=== PATIENT | male | born 1940 | race Caucasian/White ===

== ENCOUNTER → 2016-12-25 | Outpatient (CLI) | payer OTHER | LOC: MMPC 09:00 | DX: M54.5 Low back pain (principal); J43.8 Other emphysema; E78.5 Hyperlipidemia, unspecified; K42.9 Umbilical hernia without obstruction or gangrene; F25.8 Other schizoaffective disorders | CPT/HCPCS: 99214; G0463 ==

== ENCOUNTER → 2016-12-26 | Outpatient (CLI) | payer OTHER ==
[2016-12-26 10:45] LABS: BASOPHILS # (AUTO) 0.06 10*3/UL; BASOPHILS % (AUTO) 1.1 % (0-1); EOSINOPHILS % (AUTO) 2.2 % (0-8); HEMATOCRIT 45.6 % (42.0-52.0); HEMOGLOBIN 15.6 g/dL (14.0-18.0); IMM GRAN % (AUTO) 0.4 % (0-5); IMM GRAN# (AUTO) 0.02 10*3/UL; LYMPHOCYTES # (AUTO) 2.11 10*3/uL; LYMPHOCYTES % (AUTO) 38.3 % (10-50); MEAN CORPUSCULAR HEMOGLOBIN 31.5 PG (27-31); MEAN CORPUSCULAR HGB CONC 34.2 g/dL (33-37); MEAN PLATELET VOLUME 10.6 FL (7.4-12.2); MONOCYTES % (AUTO) 7.3 % (5-15); NEUTROPHILS % (AUTO) 50.7 % (50-80); RDW COEFFICIENT OF VARIATION 13.6 % (11.5-14.5); RED BLOOD COUNT 4.95 10^6/uL (4.70-6.10); WHITE BLOOD COUNT 5.51 10^3/uL (4.8-10.8)
[2016-12-26 10:47] LABS: PLATELET MORPHOLOGY COMMENT NORMAL MORPHOLOGY (NORM)
[2016-12-26 10:55] LABS: BILIRUBIN,TOTAL 0.5 mg/dL (0.3-1.2); CALCIUM 9.3 mg/dL (8.7-10.7); POTASSIUM 4.8 meq/L (3.8-5.2); TOTAL PROTEIN 6.9 g/dL (6.1-8.0)
[2016-12-26 16:32] LABS: BILIRUBIN,URINE NEGATIVE (NEG); CLARITY,URINE CLEAR (CLEAR); GLUCOSE, URINE (UA) NEGATIVE (NEG); LEUKOCYTE ESTERASE ,URINE NEGATIVE (NEG); NITRATE,URINE NEGATIVE (NEG); OCCULT BLOOD,URINE Trace-lysed (NEG); PH,URINE 6.5 (5.0-8.5); PROTEIN,URINE NEGATIVE (NEG); UROBILINOGEN,URINE 0.2 mg/dL (0.2)
[2016-12-26 17:22] LABS: URINE SAMPLE TYPE CLEAN CATCH URINE
[2016-12-26 17:26] LABS: SQUAMOUS EPITHELIAL CELL,UR RARE
== END ==
LOC: MOB LAB 07:52
DX: J43.9 Emphysema, unspecified (principal); E78.5 Hyperlipidemia, unspecified; E55.9 Vitamin D deficiency, unspecified; F25.8 Other schizoaffective disorders; Z12.5 Encounter for screening for malignant neoplasm of prostate
CPT/HCPCS: 36415; 80053; 80061; 81001; 82306; 84443; 85025; G0103

== ENCOUNTER → 2017-03-20 | Outpatient (CLI) | payer OTHER | LOC: MMPC 11:11 | DX: M54.5 Low back pain (principal); J43.9 Emphysema, unspecified; E78.5 Hyperlipidemia, unspecified; F25.8 Other schizoaffective disorders; E55.9 Vitamin D deficiency, unspecified | CPT/HCPCS: 99213; G0463 ==

== ENCOUNTER → 2017-04-14 | Outpatient (CLI) | payer OTHER | LOC: MOB LAB 13:29 | PROVIDERS: ATTEND Physician Assistant Medical | DX: J02.9 Acute pharyngitis, unspecified (principal) | CPT/HCPCS: 87880; 99213; G0463 ==

== ENCOUNTER 2018-10-13 07:52 | Observation (INO) ==
[2018-10-13] MEDS ORDERED: ONDANSETRON 4 MG/2 ML VIAL IVP ONE (08:00)
[2018-10-13] MEDS ORDERED: Sodium Chloride 0.9% 1,000 ML PRIMARY IV ONE (08:00)
[2018-10-13] MEDS ORDERED: FAMOTIDINE 20 MG/2 ML VIAL IVP ONE (08:01)
--- NOTE | 2018-10-13 08:06 | EKG ---
[address] [address] Measurements Intervals [place] Rate: 96 P: 56 SC: 171 QRS: 45 QRSD: 101 T: 58 QT: 352 QTc: 405 Interpretive Statements SINUS RHYTHM No previous ECG available for comparison Electronically Signed On 10-13-18 08:35:51 MST by Oliverio Bhatt [email or web address]
[2018-10-13 08:08] LABS: BASOPHILS # (AUTO) 0.06 10*3/UL; BASOPHILS % (AUTO) 0.8 % (0-1); EOSINOPHILS # (AUTO) 0.21 10*3/UL; EOSINOPHILS % (AUTO) 2.6 % (0-8); Hematocrit [HCT] 46.7 % (42.0-52.0); Hemoglobin [HGB] 15.9 g/dL (14.0-18.0); MEAN CORPUSCULAR HEMOGLOBIN 31.4 PG (27-31); MEAN CORPUSCULAR VOLUME 92.3 FL (80-90); MONOCYTES # (AUTO) 0.54 10*3/UL (0.3-0.8); MONOCYTES % (AUTO) 6.8 % (5-15); NEUTROPHILS # (AUTO) 4.24 10*3/UL; NEUTROPHILS % (AUTO) 52.9 % (50-80); PLATELET MORPHOLOGY COMMENT NORMAL MORPHOLOGY (NORM); RBC MORPHOLOGY COMMENT NORMAL MORPHOLOGY (NORM); RED BLOOD COUNT 5.06 10^6/uL (4.70-6.10); WBC MORPHOLOGY COMMENT NORMAL MORPHOLOGY (NORM)
[2018-10-13 08:16] LABS: BLOOD UREA NITROGEN 16 mg/dL (7-22); SERUM ALBUMIN 4.2 g/dL (3.5-4.8)
--- NOTE | 2018-10-13 08:24 | DI ---
AP CHEST X-RAY, 10/13/2018 8:00 AM : Clinical History: Chest pain. Vomiting. Previous Exam: None at this facility. Comment: On this view, the patient took a shallow inspiration. Soft Tissues: No acute soft tissue abnormality. Bones: Normal. Heart: Normal heart. Lungs: Lower lobe. No acute infiltrate or effusion. Mediastinum: Normal mediastinum. Nodules: No pulmonary nodules. Reading: Normal chest x-ray for the shallow inspiratory effort.
[2018-10-13] MEDS ORDERED: MECLIZINE 25 MG CHEWABLE TABLET PO ONE (08:43)
--- NOTE | 2018-10-13 08:43 | PDOC ---
General Adult HPI - General Chief Complaint: Nausea / Vomiting / Diarrhea Stated Complaint: n/v/diaphoretic Date Seen by Provider: 10/13/18 Time Seen by Provider: 07:55 Source: POSITIVE: Patient, EMS Exam Limitations: POSITIVE: No limitations Nurse's Notes Reviewed & Considered: Yes EMS Report Reviewed & Considered: Verbal - History of Present Illness Initial Comment: The patient is a 77-year-old male who is brought to the emergency department with complaints of dizziness, nausea and vomiting. The patient reports that he woke up at approximately 3 AM this morning and was feeling dizzy. This persi sted throughout the morning and he has developed nausea and vomiting as well. He was very weak in general and at one point was feeling short of breath. EMS was called and when they arrived the patient was diaphoretic and pale.. Twelve- lead showed a normal sinus rhythm with no acute ST segment changes. An IV was established and he received Zofran in route as well as aspirin. On arrival the patient is still actively nauseated and dry heaving. He denies chest pain or abdominal pain. He does report continued "dizziness". It sounds like the symptoms are more consistent with vertigo rather than lightheadedness although there is some combination of both. The patient denies headache, numbness or weakness in his arms or legs. Have you received a tetanus shot in the past 10 years?: Yes - Patient Home Medications Home Medications: Home Medications Ibuprofen 1 tab PO PRN tab 04/01/16 Hydrocodone/Acetaminophen [Vicodin Es 7.5-300 Mg Tablet] 1 tab PO QHS PRN #30 tab 05/21/17 Clonazepam 1 tab PO QID PRN #120 tab 05/29/17 omeprazole 40 mg capsule,delayed release 40 mg PO QD #90 cap 12/03/17 amitriptyline 50 mg tablet 50 mg PO QHS #270 tab 08/12/18 alprazolam 0.5 mg tablet 0.5 mg PO QHS PRN #30 tab 09/10/18 clonazepam 0.5 mg tablet 0.5 mg PO TID #90 tab 09/10/18 ibuprofen 800 mg tablet See Rx Instructions .ROUTE .COMPLEX #180 tablet 09/24/18 Aspirin [Aspir 81] 81 mg PO DAILY 10/13/18 - Patient Allergies Allergies/Adverse Reactions: Allergies Allergy/AdvReac Type Severity Reaction Status Date / Time No Known Allergies Allergy Verified 10/13/18 08:45 Past Medical History - heen HEENT History: Denies History Cardiovascular History: Denies History Respiratory History: Denies History Gastrointestinal History: GERD Genitourinary History: Denies History Endocrine History: Denies History Musculoskeletal History: Denies History Prosthesis or Implant: No Neurological History: Denies History Blood Disorders: Denies History Psychiatric History: Depression, Anxiety Disorders History of Sexually Transmitted Diseases: No History of MDRO: No History of Other Communicable Diseases: No In the Past 12 Months, Have Used or Abuse Any Substance: None Previous Surgical History: Yes Type / Date of Surgery: abd wall for fatty tumor removal Past Medical History Reviewed: Reviewed - No Changes ROS - Limitations ROS Limitations: No Limitations Constitution: REPORTS: Chills, Diaphoresis. DENIES: Fever Cardiovascular: DENIES: Chest Pain, Edema Respiratory: REPORTS: Shortness Of Breath Neurological: DENIES: Headache, Numbness, Weakness Gastrointestinal: REPORTS: Nausea, Vomitting. DENIES: Abdominal Pain, Diarrhea Endocrine: REPORTS: Fatigue Musculoskeletal: DENIES: Lower Extremity Swelling Genitourinary: REPORTS: Denies Symptoms Eyes: REPORTS: Denies Symptoms ENT: REPORTS: Denies Symptoms Skin: DENIES: Rash General Adult Exam - General Appearance General Appearance: POSITIVE: Alert, Cooperative, No Acute Distress - HEENT HEENT: POSITIVE: Head Inspection Nml, Eyes Inspection Nml, Ears Inspection Nml, Nose Inspection Nml, Pharynx Inspect. Nml - Neck Neck: POSITIVE: Normal Inspection. 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 Chest x-ray is normal per radiologist. Lab Results Reviewed by Me: Yes Lab Results:: Laboratory Results 10/13/18 10/13/18 10/13/18 07:50 07:50 07:50 WBC 8.00 RBC 5.06 Hgb 15.9 Hct 46.7 MCV 92.3 H MCH 31.4 H MCHC 34.0 RDW Std Deviation 43.9 RDW Coeff of Carlos 13.3 Plt Count 255 MPV 10.0 Immature Gran % (Auto) 0.6 Neut % (Auto) 52.9 Lymph % (Auto) 36.3 [place] % (Auto) 6.8 Eos % (Auto) 2.6 Baso % (Auto) 0.8 Immature Gran # (Auto) 0.05 Neut # (Auto) 4.24 Lymph # (Auto) 2.90 [place] # (Auto) 0.54 Eos # (Auto) 0.21 Baso # (Auto) 0.06 WBC Morphology Comment Normal morphology Plt Morphology Comment Normal morphology RBC Morph Comment Normal morphology D-Dimer 0.49 Sodium 140 Potassium 4.4 Chloride 105 Carbon Dioxide 25 Anion Gap 10 BUN 16 Creatinine 1.0 BUN/Creatinine Ratio 16.00 Glucose 140 H Calculated Osmolality 292.0 Lactic Acid Calcium 9.1 Magnesium 2.0 Total Bilirubin 0.4 AST 28 ALT 36 Alkaline Phosphatase 77 Troponin I C-Reactive Protein 0.7 Total Protein 7.3 Albumin 4.2 Globulin 3.1 Albumin/Globulin Ratio 1.30 Serum Alcohol < 10 10/13/18 10/13/18 07:50 07:50 WBC RBC Hgb Hct MCV MCH MCHC RDW Std Deviation RDW Coeff of Carlos Plt Count MPV Immature Gran % (Auto) Neut % (Auto) Lymph % (Auto) [place] % (Auto) Eos % (Auto) Baso % (Auto) Immature Gran # (Auto) Neut # (Auto) Lymph # (Auto) [place] # (Auto) Eos # (Auto) Baso # (Auto) WBC Morphology Comment Plt Morphology Comment RBC Morph Comment D-Dimer Sodium Potassium Chloride Carbon Dioxide Anion Gap BUN Creatinine BUN/Creatinine Ratio Glucose Calculated Osmolality Lactic Acid 1.9 Calcium Magnesium Total Bilirubin AST ALT Alkaline Phosphatase Troponin I < 0.012 C-Reactive Protein Total Protein Albumin Globulin Albumin/Globulin Ratio Serum Alcohol CBC and BMP: 10/13/18 07:50 10/13/18 07:50 EKG Interpreted/Reviewed By Me:: Yes EKG Interpretation:: POSITIVE: Normal Sinus Rhythm, Normal Rate, Normal QRS, Normal ST/T - Patient's Progress MDM / ED Course: The patient was still actively nauseated and dry heaving on arrival. He received a second dose of Zofran 4 mg IV as well as Pepcid 20 mg IV. EKG here shows normal sinus rhythm with no acute ST segment or T-wave changes. He did receive a fluid bolus. His blood work is all essentially unremarkable with a normal d-dimer and normal troponin. Chest x-ray is normal per radiologist and head CT is normal per radiologist. He did have continued dizziness and received meclizine. He was still feeling weak and dizzy with attempts at ambulation. He also was developing some epigastric abdominal discomfort. He received Protonix 40 mg IV. He remained slightly hypoxic as well with O2 sats in the upper 80s on room air. At this point it appears most likely that the patient has some type of viral syndrome with associated vertigo and vomiting. He also has mild hypoxia. The patient will be admitted for further monitoring and treatment. The patient is in agreement with this plan and Dr. Wick has agreed to admit the patient. - Consult Counseled: POSITIVE: Patient, Family, RE: Lab Results, RE: Radiology Results, RE: DX, RE: Need for F/U Patient Care Time - Estimated PCT Patient Care Time (In Minutes): 35 Vital Signs - Recent Vital Signs Vital Signs: Vital Signs (Last 8 hours) Temp Pulse Pulse Resp BP Pulse Ox 10/13/18 07:49 97.5 F 78 86 16 157/89 89 - VS Reviewed Vital Signs Reviewed: Yes Discharge Clinical Impression: Vertigo, Dehydration, Nausea and vomiting Discharge Disposition: Admit to Observation Condition: Fair Follow Up With: MARION WARE [Primary Care Provider] -
--- NOTE | 2018-10-13 09:47 | DI ---
CT HEAD SCAN WITHOUT IV CONTRAST, 10/13/2018 8:00 AM : Clinical History: Dizziness. Vomiting. Previous Exam: 01/15/2018. Technique: Performed from the foramen magnum to vertex without IV contrast. Contrast Volume: None. 4th Ventricle: Normal. 3rd Ventricle: Mildly dilated, but normal for age. Lateral Ventricles: Mildly dilated, but normal for age. Cerebrum: Normal. No acute bland or hemorrhagic infarct. Cerebellum: Normal. No cerebellopontine angle mass. Brainstem: Normal. Atrophy: Moderate cerebellar and moderate cerebral atrophy. Extracerebral Mantles/Midline Shift: No extracerebral mantle or dural lesion. No midline shift. Sinuses: Normal. Skull: Intact. READIN. No acute hemorrhagic or bland infarct. No evidence of a cerebellopontine angle mass. 2. Moderate cerebellar and cerebral atrophy.
[2018-10-13] MEDS ORDERED: DOCUSATE 100 MG CAPSULE PO PRN (13:06)
[2018-10-13] MEDS ORDERED: CALCIUM CARBONATE 500 MG (TUMS) CHEWABLE TABLET PO PRN (13:06)
[2018-10-13] MEDS ORDERED: LIDOCAINE W/ SODIUM BICARB 0.5 ML SYR SUBD PRN (13:06)
[2018-10-13] MEDS ORDERED: ACETAMINOPHEN 325 MG TABLET PO PRN (13:06)
[2018-10-13] MEDS ORDERED: ONDANSETRON 4 MG/2 ML VIAL IVP PRN (13:06)
[2018-10-13] MEDS: Sodium Chloride 0.9% 1,000 ML PRIMARY IV SCH ×2 (13:22→20:59)
[2018-10-13] MEDS: ClonazePAM Tab 1 MG TABLET PO SCH ×2 (15:10→20:56)
--- NOTE | 2018-10-13 16:01 | PDOC ---
HPI - History of Present Illness Date of Service: 10/13/18 Time of Service: 15:30 Chief Complaint: Vertigo and vomiting started today. 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 This persisted he vomited multiple times maybe like 5 times. He denied chest pain and no shortness of breath. The dizziness was described as spinning sensation. Humberto e of all the symptoms he came into the ER he was given fluids and will given Zofran and meclizine. A CT of the head was negative. Lab tests done were negative. He continued to feel dizzy. He did report that he had some epigastric pain mainly just above the umbilicus. He did receive Protonix. B ecause he continued to feel dizzy and had the nausea he was admitted to the hospital. By the time I came to see me said he feels better now. He is denying symptoms now there is no vertigo, there is no short of breath there is no pain. He feels he is back to his usual self. He said he did get up and he does not feel dizzy and no vertigo after he got up. He denied speech, vision, numbness or weakness in one side more than the other. he Said he did have an episode of dizziness more than a year ago but did not end up going to the hospital and it resolved on its own. Past Medical History Medical History: 1. Anxiety. 2. Depression Surgical History: 1. Tonsillectomy. 2. History of facial trauma when he was a child Family History: Reviewed an Not Pertinent Past Social History: Patient does not smoke, does not drink and no drugs. Tobacco Use: Former Smoker In the Past 12 Months, Have Used or Abuse Any of the Following Substance: Non Opiate Pain Medication, Tranquilizer/Benzodiazepine Alcohol Use: None Medication / Allergies Home Medications: Home Medications Medication Instructions Recorded Confirmed Type Ibuprofen 1 tab PO PRN tab 04/01/16 History Hydrocodone/Acetaminophen [Vicodin 1 tab PO QHS PRN #30 tab 05/21/17 Clinic Es 7.5-300 Mg Tablet] Clonazepam 1 tab PO QID PRN #120 tab 05/29/17 Clinic omeprazole 40 mg capsule,delayed 40 mg PO QD #90 cap 12/03/17 10/13/18 Rx release amitriptyline 50 mg tablet 50 mg PO QHS #270 tab 08/12/18 10/13/18 Rx alprazolam 0.5 mg tablet 0.5 mg PO QHS PRN #30 tab 09/10/18 10/13/18 Rx clonazepam 0.5 mg tablet 0.5 mg PO TID #90 tab 09/10/18 10/13/18 Rx ibuprofen 800 mg tablet See Rx Instructions .ROUTE 09/24/18 10/13/18 Rx .COMPLEX #180 tablet Aspirin [Aspir 81] 81 mg PO DAILY 10/13/18 10/13/18 History Allergies/Adverse Reactions: Allergies Allergy/AdvReac Type Severity Reaction Status Date / Time No Known Allergies Allergy Verified 10/13/18 08:45 Review of Systems - Review of Systems All Systems: Reviewed & No Additional Complaints Except as Stated Exam - Vitals Vital Signs: Vital Signs Temperature 97.5 F Temperature Source Oral Pulse Rate [Pulse Oximeter 91 Right] Pulse Rate 76 Respiratory Rate 16 Blood Pressure [Left Arm] 144/83 Blood Pressure 145/85 Pulse Ox 91 Oxygen Delivery Method Room Air Height 5 ft 11 in Weight 202 lb 12.8 oz - General General Appearance: No Acute Distress, Cooperative - Head Head Exam: Normal Inspection - Eye Eye Exam: POSITIVE: Normal Appearance - ENT ENT Exam: POSITIVE: Normal Exam - Neck Neck Exam: Normal Inspection - Respiratory Respiratory Exam: POSITIVE: Clear to Auscultation - Bilaterally - Cardiovascular Cardiovascular Exam: POSITIVE: RRR - GI/Abdominal GI/Abdominal Exam: POSITIVE: Normal Bowel Sounds, Non Tender, Non Distended, Soft, No Organomegaly - Rectal Rectal Exam: POSITIVE: Deferred - External Exam: POSITIVE: Deferred Exam: POSITIVE: Deferred - Extremities Extremities Exam: POSITIVE: Normal Inspection - Back Back Exam: POSITIVE: Normal Inspection - Neurological Neurological Exam: POSITIVE: Alert, Oriented x 3, CN II-XII Intact, No Facial Droop, Speech Intact / Clear, Moves All Extremities Equally - Psychiatric Psychiatric Exam: POSITIVE: Normal Affect - Integumentary Integumentary Exam: POSITIVE: Normal Color Results - Labs CBC and BMP: 10/13/18 07:50 10/13/18 07:50 - EKG Data -: EKG Interpreted by Me Rate: Normal EKG Shows Normal: Sinus Rhythm - EKG Data EKG Interpretation: Other (EKG does not show acute changes) - Imaging Status: Report Reviewed by Me (CT head 1. No acute hemorrhagic or bland infarct. No evidence of a cerebellopontine angle mass. 2. Moderate cerebellar and cerebral atrophy. Chest X ray Normal chest x-ray for the shallow inspiratory effort.) Assessment and Plan - Patient Problems (1) Vertigo Current Visit: Yes Status: Acute Comment: Seem to be peripheral in etiology. I think will continue with IV fluid. Continue symptomatic treatment. Likely home tomorrow. Await MRI report. Code(s): R42 - Dizziness and giddiness (2) Anxiety Current Visit: No Status: Chronic Comment: Same med Code(s): F41.9 - Anxiety disorder, unspecified (3) Depression Current Visit: Yes Status: Acute Comment: Same medications Code(s): F32.9 - Major depressive disorder, single episode, unspecified
[2018-10-13] MEDS: AMITRIPTYLINE 25 MG TABLET PO SCH ×2 (16:10→20:57)
[2018-10-13] MEDS ORDERED: MECLIZINE 25 MG CHEWABLE TABLET PO PRN (16:14)
--- NOTE | 2018-10-13 17:58 | DI ---
MRI BRAIN SCAN WITHOUT IV CONTRAST, 10/13/2018 1:06 PM: Clinical History: Vertigo. Prior Exam: None at this facility. Comparison Exam: Noncontrast CT head scan from 10/03/2018. Sequences: Sagittal T1; Axial CELSO T2 and FLAIR. Axial diffusion weighted images with ADC mapping. 4th Ventricle: Normal. 3rd Ventricle: Mildly dilated, but normal for age. Lateral Ventricles: Mildly dilated, but normal for age. Cerebrum: No acute hemorrhagic or bland infarct. No evidence of small vessel ischemic disease. Cerebellum: Normal. No cerebellopontine angle mass. Cerebellar Tonsils: Normal position. Brainstem: Normal. Atrophy: Moderate cerebellar and cerebral atrophy.. Extracerebral Mantles/Midline Shift: No extracerebral mantle or dural lesion. No midline shift. Sinuses: Normal. Readin. No acute hemorrhagic or bland infarct and there is no evidence of a cerebellar pontine angle mass . 2. No evidence of significant small vessel ischemic disease. 3. Moderate cerebellar and cerebral atrophy.
[2018-10-13] MEDS ORDERED: ALPRAZolam Tab 0.25 MG TABLET PO PRN (21:00)
[2018-10-13] MEDS ORDERED: AMITRIPTYLINE 25 MG TABLET PO SCH (21:00)
[2018-10-14 05:28] LABS: BASOPHILS # (AUTO) 0.04 10*3/UL; BASOPHILS % (AUTO) 0.6 % (0-1); EOSINOPHILS # (AUTO) 0.19 10*3/UL; EOSINOPHILS % (AUTO) 2.7 % (0-8); Hematocrit [HCT] 46.9 % (42.0-52.0); Hemoglobin [HGB] 15.7 g/dL (14.0-18.0); LYMPHOCYTES # (AUTO) 2.23 10*3/uL; MEAN CORPUSCULAR HEMOGLOBIN 31.5 PG (27-31); MEAN CORPUSCULAR HGB CONC 33.5 g/dL (33-37); MEAN CORPUSCULAR VOLUME 94.2 FL (80-90); MEAN PLATELET VOLUME 10.8 FL (7.4-12.2); MONOCYTES # (AUTO) 0.58 10*3/UL (0.3-0.8); MONOCYTES % (AUTO) 8.2 % (5-15); NEUTROPHILS # (AUTO) 4.03 10*3/UL; NEUTROPHILS % (AUTO) 56.7 % (50-80); RED BLOOD COUNT 4.98 10^6/uL (4.70-6.10)
[2018-10-14 05:45] LABS: PLATELET MORPHOLOGY COMMENT NORMAL MORPHOLOGY (NORM); RBC MORPHOLOGY COMMENT NORMAL MORPHOLOGY (NORM); WBC MORPHOLOGY COMMENT NORMAL MORPHOLOGY (NORM)
[2018-10-14 05:49] LABS: BLOOD UREA NITROGEN 11 mg/dL (7-22); BUN/CREATININE RATIO 12.22 (6-20)
[2018-10-14] MEDS ORDERED: OMEPRAZOLE 40 MG CAPSULE PO SCH (07:00)
[2018-10-14] MEDS: AMITRIPTYLINE 25 MG TABLET PO SCH (08:16)
[2018-10-14] MEDS: ClonazePAM Tab 1 MG TABLET PO SCH (08:16)
[2018-10-14] MEDS: Sodium Chloride 0.9% 1,000 ML PRIMARY IV SCH (08:18)
[2018-10-14] MEDS ORDERED: ASPIRIN EC 81 MG TABLET PO SCH (09:00)
--- NOTE | 2018-10-14 09:08 | DCSUMMARY ---
Hospitalization Summary Admit Date: 10/13/2018 Discharge Date: 10/14/18 Hospital Course: Discharge diagnoses 1. Episode of vertigo resolved, peripheral in etiology 2. History of anxiety 3. History of depression Hospital course This is a 77 years old male with medical history significant for history of anxiety and depression who presented to the hospital with history of nausea, vomiting and dizziness that started the morning of admission. The patient vomited multiple times like 5 times. There was no chest pain and no shortness of breath. The dizziness was described as a spinning sensation. Because of all the symptoms he came into the ER he was given fluid, Zofran and meclizine. A CT of the head was negative. Lab test were negative. He Continued to feel dizzy and was admitted. By time I saw him he felt better. There was no significant finding on physical examination there was no incoordination and no nystagmus. No focal weakness. We kept him overnight for observation and continued with fluid. The next day he was still feeling fine. Exam was unremarkable we thought that he could be discharged home. He said he had a history of wax in the left eart was taking drops for it. There is still some but this wasn't significant to explain his symptoms. He may have benign positional vertigo. I did write a prescription for meclizine in case he developed another attack. He did have an MRI and there was no evidence of stroke. He did walk and gait and balance was stable. He'll be discharged home follow-up with his PCP. Laboratory Results 10/14/18 10/14/18 10/14/18 04:34 04:34 04:34 WBC 7.09 RBC 4.98 Hgb 15.7 Hct 46.9 MCV 94.2 H MCH 31.5 H MCHC 33.5 RDW Std Deviation 45.1 RDW Coeff of Carlos 13.5 Plt Count 213 MPV 10.8 Immature Gran % (Auto) 0.3 Neut % (Auto) 56.7 Lymph % (Auto) 31.5 [place] % (Auto) 8.2 Eos % (Auto) 2.7 Baso % (Auto) 0.6 Immature Gran # (Auto) 0.02 Neut # (Auto) 4.03 Lymph # (Auto) 2.23 [place] # (Auto) 0.58 Eos # (Auto) 0.19 Baso # (Auto) 0.04 WBC Morphology Comment Normal morphology Plt Morphology Comment Normal morphology RBC Morph Comment Normal morphology Sodium 142 Potassium 4.9 Chloride 107 Carbon Dioxide 28 Anion Gap 7 BUN 11 Creatinine 0.9 BUN/Creatinine Ratio 12.22 Glucose 87 Calculated Osmolality 291.0 Calcium 8.6 L Troponin I < 0.012 Discharge instruction Diet regular Activity as started Medications Current Medication(s) Medication Instructions Recorded Confirmed Type Ibuprofen 1 tab PO PRN tab 04/01/16 History Hydrocodone/Acetaminophen [Vicodin 1 tab PO QHS PRN #30 tab 05/21/17 Clinic Es 7.5-300 Mg Tablet] Clonazepam 1 tab PO QID PRN #120 tab 05/29/17 Clinic omeprazole 40 mg capsule,delayed 40 mg PO QD #90 cap 12/03/17 10/13/18 Rx release alprazolam 0.5 mg tablet 0.5 mg PO QHS PRN #30 tab 09/10/18 10/13/18 Rx clonazepam 0.5 mg tablet 0.5 mg PO TID #90 tab 09/10/18 10/13/18 Rx ibuprofen 800 mg tablet See Rx Instructions .ROUTE 09/24/18 10/13/18 Rx .COMPLEX #180 tablet Aspirin [Aspir 81] 81 mg PO DAILY 10/13/18 10/13/18 History Amitriptyline HCl 50 mg PO TID tab 10/14/18 Rx Meclizine HCl [Antivert] 25 mg PO TID PRN #10 tab.chew 10/14/18 Rx Follow-up with PCP in 1-2 weeks Condition at discharge was stable for discharge Exam - Vitals Vital Signs: Vital Signs Temperature 97.4 F Temperature Source Temporal Artery Scan Pulse Rate [Pulse Oximeter 77 Right] Pulse Rate 70 Respiratory Rate 18 Blood Pressure [Left Arm] 134/93 Blood Pressure 145/85 Pulse Ox 94 Oxygen Flow Rate 2 Oxygen Delivery Method Room Air Height 5 ft 11 in Weight 201 lb 8 oz - General General Appearance: No Acute Distress, Cooperative - Head Head Exam: Normal Inspection - Eye Eye Exam: POSITIVE: Normal Appearance - ENT Additonal ENT Exam Details: Small amount of wax in the left ear - Neck Neck Exam: Normal Inspection - Respiratory Respiratory Exam: POSITIVE: Clear to Auscultation - Bilaterally - Cardiovascular Cardiovascular Exam: POSITIVE: RRR - GI/Abdominal GI/Abdominal Exam: POSITIVE: Normal Bowel Sounds, Non Tender, Non Distended, Soft, No Organomegaly - Rectal Rectal Exam: POSITIVE: Deferred - External Exam: POSITIVE: Deferred Exam: POSITIVE: Deferred - Extremities Extremities Exam: POSITIVE: Normal Inspection - Back Back Exam: POSITIVE: Normal Inspection - Neurological Neurological Exam: POSITIVE: Alert, Oriented x 3, CN II-XII Intact, No Facial Droop, Speech Intact / Clear, Moves All Extremities Equally - Psychiatric Psychiatric Exam: POSITIVE: Normal Affect - Integumentary Integumentary Exam: POSITIVE: Normal Color Patient Problems - Patient Problem List (1) Vertigo Status: Acute Code(s): R42 - Dizziness and giddiness Category: Medical (2) Anxiety Status: Chronic Code(s): F41.9 - Anxiety disorder, unspecified Category: Medical (3) Depression Status: Acute Code(s): F32.9 - Major depressive disorder, single episode, u nspecified Category: Medical
[2018-10-23 16:40] VITALS: BP 134/93; RESP 18; TEMP 97.4; O2SAT 94
== END 2018-10-14 09:39 | disposition home or self-care (01) ==
LOC: MED/SURG 07:52 → ER 07:52
PROVIDERS: ADMIT Family Medicine; ATTEND Family Medicine